=== PATIENT | female | born 1955 | race Caucasian/White ===

== ENCOUNTER → 2016-08-30 | Outpatient (CLI) | payer OTHER ==
--- NOTE | ~2016-08-30 | MY11 ---
[facility] A Service of [facility] RADIOLOGY TEXT RESULTS PATIENT: SEFERINO WEBSTER LOCATION: [facility] : 59 UNIT #: [id number] AGE: [address]: Emmanuel Colmenares MD SEX: F ORDER DR: [id number] [facility] [address] [place], [place] [address] [id number] O MR#: [id number] Acc #: [id number] NAME: SEFERINO WEBSTER. : 1955 SEX: F STUDY DATE/TIME: 08/30/2016 10:58 UNIT: [facility] ROOM: STUDY DESCRIPTION: MY Mammogram Screening Dig Jourdan Attending Physician: Emmanuel Colmenares M.D. Ordering Physician: Emmanuel Colmenares M.D. Primary Care Physician: Brooklyn Alvarez Aprn MEDICAL IMAGING REPORT This report is preliminary unless electronic signature is present EXAM Bilateral digital screening mammogram with CAD. DATE 08/30/2016 HISTORY No documented personal or family history of breast cancer or current complaints. COMPARISON Bilateral screening mammogram 03/19/2015, 04/02/2010, 09/09/2008. FINDINGS CC and MLO views were obtained of each breast utilizing digital technique and reviewed with an FDA-approved CAD device. Scattered fibroglandular densities are present bilaterally. An oval well-circumscribed nodule within the posterior third of the right breast near the 9 o'clock axis is unchanged compared to 09/09/2008, in keeping with a benign finding such as an intramammary lymph node. No new or suspicious nodules are identified. No architectural distortion. No suspicious clustered microcalcification. IMPRESSION BIRADS 2. Benign findings. Routine bilateral screening mammogram is recommended in 1 year. Patients over the age of 40 are entered into a reminder system with target due date for the next mammogram. A result letter will also be sent to the patient. BIRADS: 2 Benign finding. [facility] A Service [facility] RADIOLOGY TEXT RESULTS PATIENT: SEFERINO WEBSTER LOCATION: [facility] : 59 UNIT #: [id number] AGE: [address]: Emmanuel Colmenares MD SEX: F ORDER DR: Dictated by... Maricel Almodovar M.D. THIS IS AN ELECTRONICALLY VERIFIED REPORT Maricel Almodovar M.D. at 08/31/2016 7:11 AM LENORA/jv TD: 08/30/2016 14:34 JOB #: [id number] MEDICAL IMAGING REPORT Page 1 of 1 COPY
== END | disposition home or self-care (01) ==
LOC: CWCC 10:05
DX: Z12.31 Encounter for screening mammogram for malignant neoplasm of breast (principal)
CPT/HCPCS: G0202